=== PATIENT | male | born 1930 | race African-American/Black ===

== ENCOUNTER 2016-12-13 15:36 | Emergency (ER) | payer MEDICARE, OTHER ==
[~2016-12-13] VITALS: Ht 177.8 cm; Wt 75.0 kg
[~2016-12-13 15:36] MED LIST: AMLO2.5T45 PO; ATOR10TA69 PO; CHOL500010 PO; CLOP75TA33 PO; GABA-529 PO; METF500T4 PO; PIOG30TA10 PO; SITA50TA3 PO; SPIR25TA4 PO
[2016-12-13] MEDS ORDERED: LIDOCAINE HCL/EPINEPHRINE 1%-EPI 1:100,000 30 ML VIAL INFIL ONE (16:00)
[2016-12-13] MEDS ORDERED: LIDOCAINE HCL 1%/EPI 1:200,000 30 ML VIAL IJ ONE (16:15)
[2016-12-13 18:45] VITALS: BP 171/83
[2016-12-13] MEDS ORDERED: BACITRACIN ZINC 15GM TUBE TOP ONE (19:45)
[2016-12-13] MEDS ORDERED: BACITRACIN ZINC OINT UDPKT TOP SCH (20:00)
== END 2016-12-13 20:20 | disposition home or self-care (01) ==
LOC: ER 16:23
DX: S01.81XA Laceration without foreign body of other part of head, initial encounter (principal); E11.9 Type 2 diabetes mellitus without complications; I10 Essential (primary) hypertension; Z79.01 Long term (current) use of anticoagulants; W01.0XXA Fall on same level from slipping, tripping and stumbling without subsequent striking against object, initial encounter; Y93.89 Activity, other specified; Y92.89 Other specified places as the place of occurrence of the external cause; Y99.8 Other external cause status
CPT/HCPCS: 12053; 70450; 99284